=== PATIENT | female | born 1995 | race Caucasian/White ===

== ENCOUNTER → 2018-06-11 | Outpatient (CLI) | payer BC ==
[2018-06-11 18:06] LABS: Basophils % (A) 0 %; Eosinophils % (A) 0 %; HCT 43.9 % (34.0-46.0); HGB 14.3 gm/dL (11.4-16.0); Lymphocytes # (A) 0.8 k/uL (1.0-4.8); Lymphocytes % (A) 15 %; MCH 28.6 pg (25.0-35.0); MCHC 32.7 g/dL (31.0-37.0); MCV 87.6 fL (80.0-100.0); Mean Platelet Volume 8.2; Monocytes # (A) 0.3 k/uL (0-1.0); Monocytes % (A) 5 %; Neutrophils % (A) 77 %; Platelet Count 197 k/uL (150-450); RBC 5.01 m/uL (3.80-5.40); RDW 12.6 % (11.5-15.5); WBC 5.1 k/uL (3.8-10.6)
== END ==
LOC: LABWHC1 16:44
PROVIDERS: ATTEND Otolaryngology
DX: M79.10 Myalgia, unspecified site (principal); R53.83 Other fatigue
CPT/HCPCS: 36415; 85025

== ENCOUNTER → 2018-11-09 | Outpatient (CLI) | payer BC ==
[2018-11-09 20:23] LABS: Clam IgE <0.10 kU/L; Egg White IgE <0.10 kU/L; Scallop IgE <0.10 kU/L; Walnut IgE (Food) <0.10 kU/L
[2018-11-09 20:24] LABS: Codfish IgE <0.10 kU/L
[2018-11-09 20:25] LABS: Peanut IgE <0.10 kU/L; Soybean IgE <0.10 kU/L
[2018-11-09 20:26] LABS: Shrimp IgE <0.10 kU/L
[2018-11-09 20:31] LABS: Cat Epith & Dander IgE <0.10 kU/L; Dermato. farinae IgE <0.10 kU/L
[2018-11-09 20:32] LABS: Cockroach IgE <0.10 kU/L; Dog Dander IgE <0.10 kU/L; Immunoglobulin E 1.63 IU/mL (0.00-114.00)
[2018-11-09 20:33] LABS: Alternaria alternata IgE <0.10 kU/L
[2018-11-09 20:37] LABS: Birch IgE <0.10 kU/L; Elm IgE <0.10 kU/L; Maple (Box Elder) IgE <0.10 kU/L; Oak IgE <0.10 kU/L; Ragweed,Common IgE <0.10 kU/L
[2018-11-09 20:39] LABS: Red Top (Bentgrass) IgE <0.10 kU/L
[2018-11-09 20:43] LABS: Immunoglobulin E 1.04 IU/mL (0.00-114.00)
[2018-11-10 11:38] LABS: IgG Subclass 3 26.9 mg/dL (11.0-85.0); IgG Subclass 4 87.2 mg/dL (3.0-175.0)
== END ==
LOC: LABWHC1 12:30
PROVIDERS: ATTEND Internal Medicine Critical Care Medicine
DX: J18.9 Pneumonia, unspecified organism (principal); J20.9 Acute bronchitis, unspecified; J45.901 Unspecified asthma with (acute) exacerbation; R05 Cough
CPT/HCPCS: 36415; 82785; 82787; 85008; 86001; 86003; 86606; 86609

== ENCOUNTER → 2018-12-14 | Outpatient (CLI) | payer BC | END | disposition home or self-care (01) | LOC: LABWHC1 10:27 | PROVIDERS: ATTEND Internal Medicine Critical Care Medicine | DX: Z00.00 Encounter for general adult medical examination without abnormal findings (principal) | CPT/HCPCS: 36415; 86480; 86704; 86706; 87340 ==

== ENCOUNTER 2020-02-14 13:57 | Emergency (ER) | payer BC ==
[2020-02-14] MEDS ORDERED: SODIUM CHLORIDE 0.9% 1,000 ML IV STA (14:30)
[2020-02-14] MEDS ORDERED: KETOROLAC 30 MG/ML 1 ML VIAL IVP STA (14:30)
--- NOTE | 2020-02-14 14:31 | ED ---
Abdominal Pain HPI - General Chief Complaint: Abdominal Pain Stated Complaint: lower pelvic pain Time Seen by Provider: 02/14/20 14:15 Source: patient Mode of arrival: ambulatory Limitations: no limitations - History of Present Illness Initial Comments: Patient is 24-year-old female presenting to emergency Department chief complaint of abdominal pain. Patient states the pain started around 1 AM today and it feels like a sharp, stabbing pain in the suprapubic region with occasional radiation to the left lower quadrant. Patient reports she had a Pap smear yesterday by Dr. Albarado. States she contacted her again and she advised him to go to the emergency department and obtain a transvaginal ultrasound. Patient states she has been taking oral contraceptive for the last few years and her periods are regular. States her last 2 periods do not match her placebo week of her oral contraceptions because she has not been taking them out of order. She did report nausea when the pain initially started which has since resolved. Patient states the pain is about a 6 at this time. Patient states there is no concern for at this time. Denies any night sweats fevers or chills. Denies any urinary or vaginal symptoms. - Related Data Home Medications Medication Instructions Recorded Confirmed Dextroamphetamine/Amphetamine 20 mg PO DAILY 02/14/20 02/14/20 [Dextroamphetamine/Amphetamine ER 20 mg Cap] Ferrous Sulfate [Feosol] 325 mg PO HS 02/14/20 02/14/20 Fluticasone Nasal Concrete [Flonase 1 spray EA NOSTRIL HS 02/14/20 02/14/20 Nasal Concrete] Montelukast Sodium [Singulair] 10 mg PO HS 02/14/20 02/14/20 Previous Rx's Medication Instructions Recorded Nitrofurantoin Monohyd/M-Cryst 100 mg PO Q12HR #14 cap 02/14/20 [Macrobid] Allergies Allergy/AdvReac Type Severity Reaction Status Date / Time No Known Allergies Allergy Verified 02/14/20 16:33 Review of Systems ROS Statement: Those systems with pertinent positive or pertinent negative responses have been documented in the HPI. ROS Other: All systems not noted in ROS Statement are negative. Past Medical History Past Medical History: No Reported History History of Any Multi-Drug Resistant Organisms: None Reported Past Surgical History: Adenoidectomy, Tonsillectomy Past Psychological History: No Psychological Hx Reported Smoking Status: Never smoker Past Alcohol Use History: Rare Past Drug Use History: None Reported General Exam Limitations: no limitations General appearance: alert, in no apparent distress Head exam: Present: atraumatic, normocephalic, normal inspection Eye exam: Present: normal appearance, PERRL, EOMI Pupils: Present: normal accommodation ENT exam: Present: normal exam, normal oropharynx, mucous membranes moist, TM's normal bilaterally, normal external ear exam Neck exam: Present: normal inspection, full ROM. Absent: tenderness Respiratory exam: Present: normal lung sounds bilaterally. Absent: respiratory distress, wheezes Cardiovascular Exam: Present: regular rate, normal rhythm, normal heart sounds GI/Abdominal exam: Present: soft, tenderness (Suprapubic tenderness. Mild left lower quadrant.). Absent: distended, guarding, rebound, rigid Extremities exam: Present: normal inspection, full ROM. Absent: tenderness Back exam: Present: normal inspection, full ROM. Absent: tenderness Neurological exam: Present: alert, oriented X3 Psychiatric exam: Present: normal affect, normal mood Skin exam: Present: warm, dry, intact, normal color Course Vital Signs 02/14/20 14:04 Temperature 98.2 F Pulse Rate 79 Respiratory 18 Rate Blood Pressure 118/85 Medical Decision Making - Medical Decision Making Patient is a 24-year-old female presenting to emergency Department with chief complaint of abdominal pain. On exam patient does have suprapubic abdominal pain with mild radiation to right and left lower extremity. UA shows elevated white blood cells and leukocyte esterase suggesting a UTI. Patient is not . Transvaginal ultrasound reveals no signs of ovarian torsion, free fluid. Small bilateral follicles noted in both ovaries. Patient was given fluids and Toradol in the ED. Patient reports a prominent symptoms on reevaluation. Patient is set to follow with primary care. She will be treated for UTI. Return parameters thoroughly discussed with patient was understanding and agreeable. Case discussed with physician. - Lab Data Lab Results 02/14/20 02/14/20 Range/Units 14:50 14:50 Urine Color Yellow Urine Appearance Cloudy H (Clear) Urine pH 7.0 (5.0-8.0) Ur Specific [place] 1.020 (1.001-1.035) Urine Protein Negative (Negative) Urine Glucose (UA) Negative (Negative) Urine Ketones Negative (Negative) Urine Blood Negative (Negative) Urine Nitrite Negative (Negative) Urine Bilirubin Negative (Negative) Urine Urobilinogen <2.0 (<2.0) mg/dL Ur Leukocyte Esterase Small H (Negative) Urine RBC 1 (0-5) /hpf Urine WBC 12 H (0-5) /hpf Ur Squamous Epith Cells 13 H (0-4) /hpf Amorphous Sediment Occasional H (None) /hpf Urine Bacteria Occasional H (None) /hpf Urine Mucus Rare H (None) /hpf Urine HCG, Qual Not Detected (Not Detectd) Disposition Clinical Impression: Abdominal pain, Urinary tract infection Disposition: HOME SELF-CARE Condition: Stable Instructions (If sedation given, give patient instructions): Abdominal Pain (ED) Additional Instructions: Take prescribed medication as directed. Alternate between Tylenol and Motrin fingertrap. Return to emergency department if symptoms worsen. Prescriptions: Nitrofurantoin Monohyd/M-Cryst [Macrobid] 100 mg PO Q12HR #14 cap Is patient prescribed a controlled substance at d/c from ED?: No Referrals: Nick Olson DO [Primary Care Provider] - 1-2 days Time of Disposition: 16:37
[2020-02-14 15:16] LABS: Amorphous Sediment,Urine Occasional /hpf; Appearance,Urine Cloudy (Clear); Bacteria,Urine Occasional /hpf; Bilirubin,Urine Negative (Negative); Blood,Urine Negative (Negative); Color,Urine Yellow; Glucose,Urine (UA) Negative (Negative); Ketones,Urine Negative (Negative); Leukocyte Esterase,Urine Small (Negative); Mucus,Urine Rare /hpf; Nitrite,Urine Negative (Negative); Protein,Urine Negative (Negative); RBC,Urine 1 /hpf (0-5); Squamous Epithelial Cell,Urine 13 /hpf (0-4); Urobilinogen,Urine <2.0 mg/dL (<2.0); WBC,Urine 12 /hpf (0-5)
--- NOTE | 2020-02-14 15:44 | US ---
EXAMINATION TYPE: US transvaginal plus Dopplers DATE OF EXAM: 02/14/2020 COMPARISON: NONE CLINICAL HISTORY: 24-year-old female with pain, Suspected ruptured ovarian cyst.. TECHNIQUE: Transvaginal (TV). Color Doppler and spectral waveform analysis of the ovarian arteries and veins. Date of LMP: 01/29/20 FINDINGS: EXAM MEASUREMENTS: Uterus: 6.8 X 3.0 X 4.6 cm Endometrial Stripe: 0.3 cm Right Ovary: 2.3 x 1.6 x 1.5 cm for volume of 3.0 mL Left Ovary: 2.1 x 1.3 x 1.5 cm for a volume of 2.1 mL 1. Uterus: Anteverted wnl 2. Endometrium: wnl 3. Right Ovary: There is follicular change. 4. Left Ovary: There is follicular change. 5. Bilateral Adnexa: wnl 6. Posterior cul-de-sac: wnl Satisfactory color Doppler and spectral waveform analysis of the ovarian arteries and veins. There is some superimposed flow noted on the left waveform. IMPRESSION: Small follicles in both ovaries. No pelvic free fluid or evidence for ovarian torsion.
[2020-02-14 17:02] VITALS: BP 116/74; PULSE 84; RESP 16; TEMP 98.6
== END 2020-02-14 17:01 | disposition home or self-care (01) ==
LOC: EC 13:57
DX: N39.0 Urinary tract infection, site not specified (principal); M79.605 Pain in left leg; M79.604 Pain in right leg; D72.829 Elevated white blood cell count, unspecified; Z79.899 Other long term (current) drug therapy; Z79.51 Long term (current) use of inhaled steroids
CPT/HCPCS: 81001; 81025; 87086; 93975; 76830; 99284; 96361; 96374; J1885

== ENCOUNTER → 2021-02-08 | Outpatient (CLI) | payer BC | END | disposition home or self-care (01) | LOC: LABWHC1 15:52 | PROVIDERS: ATTEND Internal Medicine Critical Care Medicine | DX: Z13.9 Encounter for screening, unspecified (principal) | CPT/HCPCS: 36415; 86480; 86850; 86900; 86901 ==